=== PATIENT | female | born 1985 | race Caucasian/White ===

== ENCOUNTER 2018-02-22 06:55 | Inpatient (IN) | payer OTHER ==
[2018-02-22] MEDS ORDERED: LIDOCAINE 1% (MPF) 30 ML INJ INJ (07:30)
[2018-02-22] MEDS ORDERED: METHYLERGONOVINE 0.2 MG INJ IM ×2 (07:30→12:30)
[2018-02-22] MEDS ORDERED: OXYTOCIN 30 UNITS/LR 500 ML IV ×2 (07:30→12:30)
[2018-02-22] MEDS ORDERED: CARBOPROST 250 MCG INJ IM ×2 (07:30→12:30)
[2018-02-22] MEDS: BUTORPHANOL 2 MG INJ IV (07:40)
[2018-02-22] MEDS: LACTATED RINGER'S 1,000 ML IV ×2 (07:41→08:58)
[2018-02-22 07:42] LABS: ADD MAN DIFF? NO
[2018-02-22 07:47] LABS: BASOPHILS % 0.1 % (0.0-2.0); EOSINOPHILS # 0.1 10^3/ul (0.0-0.5); EOSINOPHILS % 0.6 % (0.0-7.0); HEMATOCRIT 41.2 % (37.0-47.0); HEMOGLOBIN 13.5 g/dl (12.0-16.0); LYMPHOCYTES # 1.3 10^3/ul (0.8-2.9); LYMPHOCYTES % 12.4 % (15.0-51.0); MEAN CORPUSCULAR HGB CONC 32.8 g/dl (32.0-37.0); MEAN CORPUSCULAR VOLUME 88.6 fl (82.0-101.0); MEAN PLATELET VOLUME 11.6 fl (7.4-10.4); MONOCYTE # 0.5 10^3/ul (0.3-0.9); MONOCYTES % 4.9 % (0.0-11.0); NEUTROPHIL # 8.2 10^3/ul (1.6-7.5); NEUTROPHILS % 81.6 % (39.0-77.0); PLATELET COUNT 200 10^3/UL (140-415); RED BLOOD COUNT 4.65 10^6/ul (4.20-5.40); RED CELL DISTRIBUTION WIDTH 13.5 % (11.5-14.5)
[2018-02-22 07:47] LABS: WHITE BLOOD COUNT 10.1 10^3/ul (4.8-10.8)
[2018-02-22 08:06] LABS: INR 0.82; PROTIME 11.4 Sec (11.9-14.9); PT RATIO 0.9
[2018-02-22 08:07] LABS: PARTIAL THROMBOPLASTIN TIME 27.5 Sec (23.0-35.0)
[2018-02-22 08:36] LABS: HEPATITIS B SURFACE ANTIGEN NEGATIVE (NEGATIVE)
[2018-02-22 09:32] LABS: ALANINE AMINOTRANSFERASE 20 IU/L (13-69); ALBUMIN 3.7 g/dl (3.3-4.9); ALBUMIN/GLOBULIN RATIO 1.05; ALKALINE PHOSPHATASE 209 IU/L (42-121); ANION GAP 15 (5-13); ASPARTATE AMINO TRANSFERASE 33 IU/L (15-46); BILIRUBIN,INDIRECT 0.2 mg/dl (0-1.1); BILIRUBIN,TOTAL 0.2 mg/dl (0.2-1.3); BLOOD UREA NITROGEN 11 mg/dl (7-20); CALCIUM 9.6 mg/dl (8.4-10.2); CARBON DIOXIDE 24 mmol/L (21-31); CHLORIDE 102 mmol/L (97-110); CREATININE 0.34 mg/dl (0.44-1.00); Estimated GFR > 60 mL/min (>60); GLUCOSE 91 mg/dl (70-220); POTASSIUM 4.3 mmol/L (3.5-5.1); SODIUM 141 mmol/L (135-144); TOTAL PROTEIN 7.2 g/dl (6.1-8.1); URIC ACID 4.2 mg/dl (3.1-7.9)
[2018-02-22] MEDS: MISOPROSTOL 200 MCG TAB PR (10:38)
[2018-02-22] MEDS: OXYTOCIN 30 UNITS/LR 500 ML IV ×3 (10:42→17:06)
[2018-02-22] MEDS: IBUPROFEN 600 MG TAB PO ×3 (10:52→19:31)
[2018-02-22] MEDS ORDERED: LACTATED RINGER'S 500 ML IV (12:02)
[2018-02-22 12:29] LABS: ADD UMIC YES; UR ASCORBIC ACID NEGATIVE (NEGATIVE); UR BACTERIA FEW /HPF (NONE SEEN); UR BILIRUBIN (Dip) NEGATIVE (NEGATIVE); UR BLOOD (Dip) 2+ mg/dL (NEGATIVE); UR CLARITY CLEAR (CLEAR); UR COLOR YELLOW (YELLOW); UR GLUCOSE (Dip) NEGATIVE (NEGATIVE); UR KETONES (Dip) NEGATIVE (NEGATIVE); UR LEUKOCYTE ESTERASE (Dip) TRACE Leu/ul (NEGATIVE); UR NITRITE (Dip) NEGATIVE (NEGATIVE); UR RBC 1 /HPF (0-5); UR SPECIFIC GRAVITY (Dip) 1.015 (1.003-1.030); UR TOTAL PROTEIN (Dip) NEGATIVE (NEGATIVE); UR UROBILINOGEN (Dip) NEGATIVE (NEGATIVE); UR WBC 2 /HPF (0-5)
[2018-02-22] MEDS ORDERED: ONDANSETRON 4 MG INJ IV (12:30)
[2018-02-22] MEDS ORDERED: DIBUCAINE 1% 30 GM OINT TOP (12:30)
[2018-02-22] MEDS ORDERED: METHYLERGONOVINE 0.2 MG TAB PO (12:30)
[2018-02-22] MEDS ORDERED: ACETAMINOPHEN 325 MG TAB PO (12:30)
[2018-02-22] MEDS ORDERED: DIPHENHYDRAMINE 50 MG INJ IV (12:30)
[2018-02-22] MEDS ORDERED: MISOPROSTOL 200 MCG TAB PR (12:30)
[2018-02-22] MEDS ORDERED: ZOLPIDEM 5 MG TAB PO (12:30)
[2018-02-22] MEDS: DEXTROSE 5%-LR 1,000 ML IV (13:20)
[2018-02-22 15:23] LABS: RAPID PLASMA REAGIN NONREACTIVE (NR)
[2018-02-22] MEDS: LANOLIN HPA 1 PKT TOP (16:44)
[2018-02-22] MEDS: WITCH HAZEL/GLYCERIN PAD PR (16:45)
[2018-02-22] MEDS: BENZOCAINE 20% 56 ML SPRAY TOP (16:46)
[2018-02-22] MEDS: OXYCODONE/ASPIRIN (4.88/325) TAB PO (17:02)
[2018-02-22] MEDS: LACTATED RINGER'S 1,000 ML IV* (20:02)
[2018-02-23] MEDS: DEXTROSE 5%-LR 1,000 ML IV ×2 (04:02→12:02)
[2018-02-23] MEDS: LACTATED RINGER'S 1,000 ML IV* ×2 (04:02→12:02)
[2018-02-23] MEDS: IBUPROFEN 600 MG TAB PO ×3 (05:36→17:57)
[2018-02-23 07:15] LABS: ADD MAN DIFF? NO
[2018-02-23 07:23] LABS: BASOPHILS % 0.1 % (0.0-2.0); EOSINOPHILS # 0.1 10^3/ul (0.0-0.5); EOSINOPHILS % 0.7 % (0.0-7.0); HEMATOCRIT 39.7 % (37.0-47.0); HEMOGLOBIN 12.9 g/dl (12.0-16.0); LYMPHOCYTES # 1.9 10^3/ul (0.8-2.9); LYMPHOCYTES % 19.4 % (15.0-51.0); MEAN CORPUSCULAR HEMOGLOBIN 28.9 pg (29.0-33.0); MEAN CORPUSCULAR HGB CONC 32.5 g/dl (32.0-37.0); MEAN CORPUSCULAR VOLUME 88.8 fl (82.0-101.0); MEAN PLATELET VOLUME 11.5 fl (7.4-10.4); MONOCYTE # 0.6 10^3/ul (0.3-0.9); MONOCYTES % 6.7 % (0.0-11.0); NEUTROPHILS % 72.5 % (39.0-77.0); PLATELET COUNT 184 10^3/UL (140-415); RED BLOOD COUNT 4.47 10^6/ul (4.20-5.40); RED CELL DISTRIBUTION WIDTH 13.7 % (11.5-14.5)
[2018-02-23 07:23] LABS: WHITE BLOOD COUNT 9.6 10^3/ul (4.8-10.8)
[2018-02-24] MEDS: IBUPROFEN 600 MG TAB PO ×3 (00:03→12:00)
[2018-02-24] MEDS: MAGNESIUM HYDROXIDE 30ML CUP PO ×2 (00:06→12:00)
[2018-02-24] MEDS: SENNA/DOCUSATE NA (8.6MG/50MG) TAB PO ×2 (00:06→12:00)
[2018-02-24] MEDS: LEVOTHYROXINE 175 MCG TAB PO (05:49)
[2018-02-24] MEDS: DIPHTH/TET/ACEL PERTUSS (ADULT) 0.5 ML VIAL IM* (07:39)
[2018-02-24] MEDS: MEASLES,MUMPS,RUBELLA VACCINE INJ SC* (10:45)
== END 2018-02-24 18:15 | disposition home or self-care (01) | DRG 806 ==
LOC: OBT 06:55 → L-D 06:55 → OBT 07:30 → L-D 07:18 → PP1 11:58
PROVIDERS: Obstetrics & Gynecology
PROC: 10E0XZZ Delivery of Products of Conception, External Approach (ICD-10-PCS; principal; 2018-02-22)
DX: O99.284 Endocrine, nutritional and metabolic diseases complicating childbirth (principal); Z68.43 Body mass index [BMI] 50.0-59.9, adult; Z37.0 Single live birth; E03.9 Hypothyroidism, unspecified; O99.214 Obesity complicating childbirth; E66.01 Morbid (severe) obesity due to excess calories; Z3A.39 39 weeks gestation of pregnancy
CPT/HCPCS: 80053; 81001; 84560; 85025; 85610; 85730; 86592; 86850; 86900; 86901; 87340; 93970; 99464